=== PATIENT | female | born 1985 | race Two or more races ===

== ENCOUNTER 2020-07-07 16:26 | Emergency (ER) | payer MEDICAID, OTHER ==
[~2020-07-07] VITALS: Ht 167.6 cm; Wt 81.6 kg
[2020-07-07 19:36] VITALS: BP 128/58
== END 2020-07-07 20:28 | disposition home or self-care (01) ==
LOC: EDBD 16:26 → ER 16:26
DX: S83.92XA Sprain of unspecified site of left knee, initial encounter (principal); S43.402A Unspecified sprain of left shoulder joint, initial encounter; S20.312A Abrasion of left front wall of thorax, initial encounter; V43.52XA Car driver injured in collision with other type car in traffic accident, initial encounter; Y93.I9 Activity, other involving external motion; Y92.488 Other paved roadways as the place of occurrence of the external cause; Y99.8 Other external cause status
CPT/HCPCS: 73562